=== PATIENT | female | born 1950 | race Caucasian/White ===

== ENCOUNTER 2021-09-20 10:24 | Emergency (ER) | payer OTHER ==
[~2021-09-20] VITALS: Ht 162.6 cm; Wt 75.7 kg
[2021-09-20] MEDS ORDERED: SYNTHROID50 MCG PO (10:40)
== END 2021-09-20 16:16 | disposition home or self-care (01) ==
LOC: ER 10:24
DX: S99.921A Unspecified injury of right foot, initial encounter (principal); S79.911A Unspecified injury of right hip, initial encounter